=== PATIENT | female | born 1950 | race Caucasian/White ===

== ENCOUNTER 2020-09-10 18:54 | Emergency (ER) | payer MEDICARE, OTHER ==
[2020-09-10] MEDS ORDERED: PERCOCET TABLET 5/325MG PO ONE (19:26)
[2020-09-10] MEDS ORDERED: PERCOCET TABLET 5/325MG ONE (19:32)
--- NOTE | 2020-09-10 20:01 | ERPHSYRPT ---
- History of Present Illness Time Seen by Provider: 09/10/20 18:57 Source: patient, family Exam Limitations: no limitations Patient Subjective Stated Complaint: pt fell and landed on left arm. pt co pain to left arm, Triage Nursing Assessment: pt arrived per wc, alert, face mask in place, resp easy, skin wd/d/p, co left upper arm pain, has strong radial pulse, nail beds pink Physician History: 69-year-old female with history of diabetes mellitus, hypertension, coronary artery disease presented in the ER with chief complaint of left elbow and shoulder pain after she stumbled and fell on left elbow. Did not hit her head. No loss of consciousness. She is complaining of moderate to severe intensity sharp pain in the left elbow with movements and also pain in the left shoulder as well. She does have history of left shoulder humeral head fracture many years ago which was managed nonsurgically. Denies any numbness tingling or weakness in the hand/forearm. No injury anywhere else. Occurred: this afternoon Method of Injury: fell Quality: sharpness Severity of Pain-Max: moderate Severity of Pain-Current: moderate Extremities Pain Location: shoulder: left, elbow: left Modifying Factors: Improves With: immobilization. Worsens With: movement Associated Symptoms: none Allergies/Adverse Reactions: No Known Drug Allergies Allergy (Unverified 09/10/20 19:15) Home Medications: Amlodipine/Valsartan/Hcthiazid [Ghjte-Nhehh-Ijln 10-160-12.5MG] 1 ea DAILY 09/10/20 [History] Atorvastatin Calcium 1 ea DAILY 09/10/20 [History] Celecoxib 100 mg [celeBREX 100 MG] 1 ea DAILY 09/10/20 [History] Duloxetine HCl 1 ea DAILY 09/10/20 [History] Isosorbide Mononitrate 30 mg [Imdur 30 MG] 1 ea DAILY 09/10/20 [History] Metformin HCl Xr 500 mg [Glucophage XR 500 MG] 1 ea DAILY 09/10/20 [History] Metoprolol Succinate 100 mg [Toprol Xl 100 MG] 1 ea DAILY 09/10/20 [History] Semaglutide [Ozempic] 1 ea WEEKLY 09/10/20 [History] buPROPion HCL [Bupropion Xl] 1 ea DAILY 09/10/20 [History] Hx Tetanus, Diphtheria Vaccination/Date Given: No Hx Influenza Vaccination/Date Given: Yes Hx Pneumococcal Vaccination/Date Given: Yes Immunizations Up to Date: Yes Travel Risk - International Travel Have you traveled outside of the country in past 3 weeks: No - Coronavirus Screening Are you exhibiting any of the following symptoms?: No - Vaccine Status Have you recieved a Covid-19 vaccination: 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[employer] - Vaccination Dates Date of 2cond Vaccination (if applicable): may - Review of Systems Constitutional: No Symptoms Eyes: No Symptoms Ears, Nose, & Throat: No Symptoms Respiratory: No Symptoms Cardiac: No Symptoms Abdominal/Gastrointestinal: No Symptoms Genitourinary Symptoms: No Symptoms Musculoskeletal: Fall, Injury, Joint Pain Skin: No Symptoms Neurological: No Symptoms Psychological: No Symptoms Hematologic/Lymphatic: No Symptoms - Past Medical History Cardiac History: Hypertension, Other Endocrine Medical History: Diabetes Type II Other Medical History: R TKA - Past Surgical History Past Surgical History: Yes Gastrointestinal: Appendectomy Musculoskeletal: Orthopedic Surgery Other Surgical History: r knee replacement - Social History Smoking Status: Never smoker Exposure to second hand smoke: No Drug Use: none Patient Lives Alone: No - Female History Hx Last Menstrual Period: post Hx Now: No - Nursing Vital Signs Nursing Vital Signs: Initial Vital Signs Temperature 96.7 F 09/10/20 19:09 Pulse Rate 68 09/10/20 19:09 Respiratory Rate 18 09/10/20 19:09 Blood Pressure 162/71 09/10/20 19:09 O2 Sat by Pulse Oximetry 96 09/10/20 19:09 Pain Scale Pain Intensity 7 - Physical Exam General Appearance: no apparent distress, alert Eyes, Ears, Nose, Throat Exam: normal ENT inspection, pharynx normal Neck Exam: normal inspection, non-tender, supple, full range of motion Cardiovascular/Respiratory Exam: chest non-tender, normal breath sounds, regular rate/rhythm Abdominal Exam: non-tender, soft Back Exam: normal inspection, normal range of motion, No CVA tenderness Shoulder Exam: normal inspection, bone tenderness (Left shoulder), limited ROM (Left shoulder), pain Elbow/Forearm Exam: normal inspection, bone tenderness (Left elbow), limited ROM (Left arm), soft tissue tenderness Wrist Exam: normal inspection, non-tender, no evidence of injury, normal ROM Hand Exam: normal inspection, non-tender, no evidence of injury, normal ROM Neuro/Tendon Exam: normal sensation, normal motor functions Mental Status Exam: alert, oriented x 3, cooperative Skin Exam: normal color SpO2 Interpretation: normal SpO2: 96 O2 Delivery: Room Air Ordered Tests: Active Orders 24 hr Category Date Time Status ELBOW (MINIMUM 3 VIEWS) Stat Exams 09/10/20 20:28 Taken SHOULDER Stat Exams 09/10/20 20:28 Taken Medication Summary Discontinued Medications Generic Name Dose Route Start Last Admin Trade Name James PRN Reason Stop Dose Admin Oxycodone/Acetaminophen 1 tab 09/10/20 19:26 09/10/20 19:35 Percocet Tablet 5/325mg PO 09/10/20 19:27 1 tab STAT ONE Administration Oxycodone/Acetaminophen Confirm 09/10/20 19:32 Percocet Tablet 5/325mg Administered 09/10/20 19:33 Dose 1 tab .ROUTE .STK-MED ONE - Progress Progress: improved, pain not gone completely, re-examined Progress Note: 09/10/20 20:30 She is given oral pain medication for symptomatic relief, on reevaluation feeling better and able to move left upper extremity but still have some limitation especially in the shoulder area. X-rays elbow reviewed by me do not reveal any obvious fracture dislocation. There is a questionable fracture upper end of humerus/humeral head area. No dislocation. Official reports are pending. I would treat her as a fracture and give her symptomatic treatment for pain and immobilizer/sling and outpatient orthopedic follow-up. Discussed signs symptoms of worsening needing return to ER which patient/daughter seemed understanding. No injury anywhere else, do not think needs any other imaging, stable for discharge. Counseled pt/family regarding: diagnosis, need for follow-up, rad results - Departure Departure Disposition: Home Clinical Impression: Left humeral fracture Qualifiers: Encounter type: initial encounter Humerus Location: proximal Fracture type: closed Fracture morphology: other fracture Fracture alignment: nondisplaced Qualified Code(s): S42.295A - Other nondisplaced fracture of upper end of left humerus, initial encounter for closed fracture Fall Qualifiers: Encounter type: initial encounter Qualified Code(s): W19.XXXA - Unspecified fall, initial encounter Contusion of left elbow Qualifiers: Encounter type: initial encounter Qualified Code(s): S50.02XA - Contusion of left elbow, initial encounter Condition: Stable Critical Care Time: No Referrals: Francia GAY [Primary Care Provider] - (1-2 days for reevaluation) ORTHO - ANALISA SKELTON NP [NON-STAFF PHY W/O PRIVILEGES] - (Tomorrow for reevaluation) Instructions: Shoulder Fracture (DC), Preventing Falls in the Older Adult Additional Instructions: Take pain medications only as needed. Use cane/walker for ambulation to avoid another fall. Follow-up with Ortho clinic and primary care for reevaluation. Return to ER for intractable pain, numbness tingling weakness or pain anywhere else. Prescriptions: Hydrocodone/APAP 5/325 [Rudy 5/325 mg] 1 each PO Q8H PRN PRN #10 tablet MDD 4 PRN Reason: Pain
[2020-09-10] MEDS ORDERED: NORCO 5/325 MG PO ONE (20:35)
[2020-09-10] MEDS ORDERED: NORCO 5/325 MG ONE (20:37)
[2020-09-10 20:53] VITALS: BP 163/79; PULSE 67; O2SAT 94
--- NOTE | 2020-09-11 09:12 | XRAY ---
Indication: Pain following fall. Comparison: None 3 view left shoulder demonstrates mildly angulated subcapital/proximal humerus fracture. Elsewhere osteopenia, mild glenohumeral/AC degenerative arthropathy, and moderate multilevel degenerative spondylosis. No other bony, articular, or soft tissue abnormalities.
--- NOTE | 2020-09-11 09:15 | XRAY ---
Indication: Pain following fall. Comparison: None 3 view left elbow obtained. Lateral view limited due to suboptimal positioning. There is mild osteopenia and tiny spurring medial/lateral epicondyles and olecranon process. A few tiny soft tissue calcified granulomas. No other bony, articular, or soft tissue abnormalities.
== END 2020-09-10 20:54 | disposition home or self-care (01) ==
LOC: ED 18:54
DX: S42.295A Other nondisplaced fracture of upper end of left humerus, initial encounter for closed fracture (principal); S50.02XA Contusion of left elbow, initial encounter; W01.0XXA Fall on same level from slipping, tripping and stumbling without subsequent striking against object, initial encounter; E11.9 Type 2 diabetes mellitus without complications; I10 Essential (primary) hypertension; M25.522 Pain in left elbow; M25.512 Pain in left shoulder; Z79.899 Other long term (current) drug therapy
CPT/HCPCS: 73030; 73080; 99284; A9270-GY

== ENCOUNTER 2022-05-26 20:25 | Observation (INO) | payer MEDICARE, OTHER ==
[2022-05-26 22:13] LABS: Absolute Neutrophil Ct (ANC) 8.44 x10^3/uL (1.4-6.9); BASOPHIL % 0.4 % (0.0-0.4); Basophil (Absolute #) 0.04 x10^3/uL (0-0.4); Eosinophil % 1.5 % (0.00-5.0); Eosinophil (Absolute #) 0.16 x10^3/uL (0-0.5); Hematocrit 42.9 % (35-47); Hemoglobin 13.9 g/dL (12.0-16.0); IMMATURE GRAN # 0.03 x10^3u/L (0.00-0.03); IMMATURE GRAN % 0.3 % (0.00-0.4); Lymphocyte (Absolute #) 1.13 x10^3/uL (1.0-4.6); Lymphocytes % 10.9 % (24.0-44.0); Mean Cell Volume 86.3 fL (78-100); Mean Corpuscular Hgb Concent. 32.4 g/dL (32-36); Mean Platelet Volume 10.7 fL (7.5-11.0); Monocyte (Absolute #) 0.57 x10^3/uL (0.0-1.3); Monocytes % 5.5 % (0.0-12.0); Neutrophil % 81.4 % (36.0-66.0); Platelet Count 257 x10^3/uL (150-450); Red Blood Count 4.97 x10^6/uL (4.1-5.4); Red Cell Distribution Width 15.1 % (11.5-14.0); White Blood Count 10.4 x10^3/uL (4.0-10.5)
[2022-05-26 22:30] LABS: ALBUMIN 4.2 g/dL (3.5-5.0); ANION GAP 14.6 MEQ/L (5-15); BILIRUBIN,TOTAL 0.6 mg/dL (0.2-1.3); Calcium 9.7 mg/dL (8.4-10.2); Creatinine 1 1.03 mg/dL (0.52-1.04); EST GLOMERULAR FILTRATION RATE 55.8 ML/MIN; Potassium 4.2 mmol/L (3.5-5.1); Total Protein 7.7 g/dL (6.3-8.2)
[2022-05-27 00:15] LABS: INFLUENZA A NEGATIVE (NEGATIVE); INFLUENZA B NEGATIVE (NEGATIVE); RESPIRATORY SYNCTIAL VIRUS NEGATIVE (NEGATIVE); SARS-CoV-2 Xpert Express NEGATIVE (NEGATIVE)
--- NOTE | 2022-05-27 00:26 | ERPHSYRPT ---
- History of Present Illness Time Seen by Provider: 05/26/22 20:45 Source: patient Exam Limitations: no limitations Patient Subjective Stated Complaint: Pt reports "I fell and I think I passed out as I was falling. I hurt my shoulder. I didn't hit my head. I hope I am not in A-fib again." Triage Nursing Assessment: Pt alert and oriented x3. Arrived POV by spouse. Ambulated to ED cot without difficulty. Skin w/p/d. No apparent respiratory distress. No tenderness upon palpation/bruising/obvious disformities to right shoulder. Denies chest pain/sob/dizziness/lightheadedness. Physician History: Patient 71-year-old female presents to our ED via EMS for evaluation of syncope and fall. Patient was at home. Her left leg gave out. Patient believes she had a syncopal episode. Patient's helped her off the floor. Patient is on blood thinners. Patient has a history of A-fib. No chest pain or shortness of breath. No nausea vomiting or diaphoresis. Symptoms are mild to moderate in intensity. Patient complains of some right shoulder discomfort. No functional limitations. No swelling. Patient denies a history of syncope. She voices no other complaints or concerns at this time. Portions of this note were created with voice recognition technology. There may be grammatical, spelling, punctuation or sound alike errors Timing/Duration: today Severity: moderate Modifying Factors: Improves With: nothing Associated Symptoms: denies symptoms Allergies/Adverse Reactions: No Known Drug Allergies Allergy (Unverified 05/26/22 20:50) Home Medications: Amlodipine/Valsartan/Hcthiazid [Wihij-Sotrw-Bkdp 10-160-12.5MG] 1 ea DAILY 09/10/20 [History] Atorvastatin Calcium 1 ea DAILY 09/10/20 [History] Duloxetine HCl 1 ea DAILY 09/10/20 [History] Isosorbide Mononitrate 30 mg [Imdur 30 MG] 1 ea DAILY 09/10/20 [History] Metformin HCl Xr 500 mg [Glucophage XR 500 MG] 1 ea DAILY 09/10/20 [History] Metoprolol Succinate 100 mg [Toprol Xl 100 MG] 1 ea DAILY 09/10/20 [History] Semaglutide [Ozempic] 0.1 ml WEEKLY 09/10/20 [History] Apixaban [Eliquis] 5 mg PO BID 05/26/22 [History] Hx Tetanus, Diphtheria Vaccination/Date Given: No Hx Influenza Vaccination/Date Given: No Hx Pneumococcal Vaccination/Date Given: Yes Travel Risk - International Travel Have you traveled outside of the country in past 3 weeks: No - Coronavirus Screening Are you exhibiting any of the following symptoms?: No Close contact with a COVID-19 positive Pt in past 14-21 Days: No - Vaccine Status Have you recieved a Covid-19 vaccination: 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: [employer] - Vaccination Dates Date of 2cond Vaccination (if applicable): may - Review of Systems Constitutional: No Symptoms, No Fever, No Chills Eyes: No Symptoms Ears, Nose, & Throat: No Symptoms Respiratory: No Symptoms, No Cough, No Dyspnea Cardiac: No Symptoms, No Chest Pain, No Edema, No Syncope Abdominal/Gastrointestinal: No Symptoms, No Abdominal Pain, No Nausea, No Vomiting, No Diarrhea Genitourinary Symptoms: No Symptoms, No Dysuria Musculoskeletal: No Symptoms, No Back Pain, No Neck Pain Skin: No Symptoms, No Rash Neurological: No Symptoms, No Dizziness, No Focal Weakness, No Sensory Changes Psychological: No Symptoms Endocrine: No Symptoms Hematologic/Lymphatic: No Symptoms Immunological/Allergic: No Symptoms All Other Systems: Reviewed and Negative - Past Medical History Neurological History: No Pertinent History Cardiac History: High Cholesterol, Hypertension, Other Respiratory History: No Pertinent History Endocrine Medical History: Diabetes Type II, Liver Disease Musculoskeletal History: Arthritis, Fractures Other Medical History: Heart Murmur. Atrial fibrillation. L humeral fx - Past Surgical History Past Surgical History: Yes Gastrointestinal: Appendectomy Musculoskeletal: Orthopedic Surgery Other Surgical History: r knee replacement , two cardiac stents placed - Social History Smoking Status: Never smoker Exposure to second hand smoke: Yes Drug Use: none Patient Lives Alone: No - Nursing Vital Signs Nursing Vital Signs: Initial Vital Signs Temperature 97.6 F 05/26/22 20:38 Pulse Rate 117 H 05/26/22 20:38 Respiratory Rate 15 05/26/22 20:38 Blood Pressure 114/74 05/26/22 20:38 O2 Sat by Pulse Oximetry 95 05/26/22 20:38 Pain Scale Pain Intensity 6 - Physical Exam General Appearance: no apparent distress, alert Eye Exam: PERRL/EOMI, eyes nml inspection Ears, Nose, Throat Exam: normal ENT inspection, TMs normal, pharynx normal, moist mucous membranes Neck Exam: normal inspection, non-tender, supple, full range of motion Respiratory Exam: normal breath sounds, lungs clear, airway intact, No respiratory distress Cardiovascular Exam: regular rate/rhythm, normal heart sounds, normal peripheral pulses Gastrointestinal/Abdomen Exam: soft, normal bowel sounds, No tenderness, No mass Back Exam: normal inspection, normal range of motion, No CVA tenderness, No vertebral tenderness Extremity Exam: normal inspection, normal range of motion, pelvis stable Neurologic Exam: alert, oriented x 3, cooperative, normal mood/affect, nml cerebellar function, nml station & gait, sensation nml, No motor deficits Skin Exam: normal color, warm, dry, No rash Lymphatic Exam: No adenopathy SpO2 Interpretation: normal SpO2: 94 O2 Delivery: Room Air - Course Nursing assessment & vital signs reviewed: Yes EKG Interpreted by Me: RATE (115), A-fib, NORMAL AXIS, NORMAL INTERVALS - Radiology Exams Shoulder X-ray Interpretation: Interpreted by me (No fracture or dislocation. Osteopenia) - CT Exams Head CT Interpretation: Tele-radiologist Report (Diffuse atrophy and chronic remote ischemic changes without evidence of superimposed acute infarct or acute intracranial injury) Ordered Tests: Active Orders 24 hr Category Date Time Status Sql Server Developer STAT Care 05/26/22 21:49 Active EKG-ER Only STAT Care 05/26/22 21:48 Active IV Insertion STAT Care 05/26/22 21:48 Active HEAD WITHOUT CONTRAST [CT] Stat Exams 05/26/22 23:51 Taken SHOULDER Stat Exams 05/26/22 21:11 Taken CBC W DIFF Stat Lab 05/26/22 22:05 Completed CMP Stat Lab 05/26/22 22:05 Completed TROPONIN Q4H Lab 05/26/22 22:05 Completed TROPONIN Q4H Lab 05/27/22 02:00 Ordered TROPONIN Q4H Lab 05/27/22 06:00 Ordered UA W/RFX UR CULTURE Stat Lab 05/26/22 21:49 Ordered Transfer Order Routine Transfer 05/26/22 Ordered Lab/Rad Data: Laboratory Result Diagrams 05/26/22 22:05 05/26/22 22:05 Laboratory Results 05/26/22 05/26/22 05/26/22 Range/Units 23:15 22:05 22:05 WBC (4.0-10.5) x10^3/uL RBC (4.1-5.4) x10^6/uL Hgb (12.0-16.0) g/dL Hct (35-47) % MCV (78-100) fL MCH (26-32) pg MCHC (32-36) g/dL RDW (11.5-14.0) % Plt Count (150-450) x10^3/uL MPV (7.5-11.0) fL Gran % (36.0-66.0) % Immature Gran % (Auto) (0.00-0.4) % Nucleat RBC Rel Count (0.00-0.1) % Eos # (Auto) (0-0.5) x10^3/uL Immature Gran # (Auto) (0.00-0.03) x10^3u/L Absolute Lymphs (auto) (1.0-4.6) x10^3/uL Absolute Monos (auto) (0.0-1.3) x10^3/uL Absolute Nucleated RBC (0.00-0.01) x10^3u/L Lymphocytes % (24.0-44.0) % Monocytes % (0.0-12.0) % Eosinophils % (0.00-5.0) % Basophils % (0.0-0.4) % Absolute Granulocytes (1.4-6.9) x10^3/uL Basophils # (0-0.4) x10^3/uL Sodium 139 (137-145) mmol/L Potassium 4.2 (3.5-5.1) mmol/L Chloride 96 L (98-107) mmol/L Carbon Dioxide 32 H (22-30) mmol/L Anion Gap 14.6 (5-15) MEQ/L BUN 25 H (7-17) mg/dL Creatinine 1.03 (0.52-1.04) mg/dL Estimated GFR 55.8 ML/MIN Glucose 123 H (74-106) mg/dL Calcium 9.7 (8.4-10.2) mg/dL Total Bilirubin 0.60 (0.2-1.3) mg/dL AST 27 (14-36) U/L ALT 23 (0-35) U/L Alkaline Phosphatase 89 (38-126) U/L Troponin I < 0.012 (0.000-0.034) ng/mL Serum Total Protein 7.7 (6.3-8.2) g/dL Albumin 4.2 (3.5-5.0) g/dL Influenza Type A Ag NEGATIVE (NEGATIVE) Influenza Type B Ag NEGATIVE (NEGATIVE) RSV (PCR) NEGATIVE (NEGATIVE) SARS-CoV-2 (PCR) NEGATIVE (NEGATIVE) 05/26/22 Range/Units 22:05 WBC 10.4 (4.0-10.5) x10^3/uL RBC 4.97 (4.1-5.4) x10^6/uL Hgb 13.9 (12.0-16.0) g/dL Hct 42.9 (35-47) % MCV 86.3 (78-100) fL MCH 28.0 (26-32) pg MCHC 32.4 (32-36) g/dL RDW 15.1 H (11.5-14.0) % Plt Count 257 (150-450) x10^3/uL MPV 10.7 (7.5-11.0) fL Gran % 81.4 H (36.0-66.0) % Immature Gran % (Auto) 0.3 (0.00-0.4) % Nucleat RBC Rel Count 0.0 (0.00-0.1) % Eos # (Auto) 0.16 (0-0.5) x10^3/uL Immature Gran # (Auto) 0.03 (0.00-0.03) x10^3u/L Absolute Lymphs (auto) 1.13 (1.0-4.6) x10^3/uL Absolute Monos (auto) 0.57 (0.0-1.3) x10^3/uL Absolute Nucleated RBC 0.00 (0.00-0.01) x10^3u/L Lymphocytes % 10.9 L (24.0-44.0) % Monocytes % 5.5 (0.0-12.0) % Eosinophils % 1.5 (0.00-5.0) % Basophils % 0.4 (0.0-0.4) % Absolute Granulocytes 8.44 H (1.4-6.9) x10^3/uL Basophils # 0.04 (0-0.4) x10^3/uL Sodium (137-145) mmol/L Potassium (3.5-5.1) mmol/L Chloride (98-107) mmol/L Carbon Dioxide (22-30) mmol/L Anion Gap (5-15) MEQ/L BUN (7-17) mg/dL Creatinine (0.52-1.04) mg/dL Estimated GFR ML/MIN Glucose (74-106) mg/dL Calcium (8.4-10.2) mg/dL Total Bilirubin (0.2-1.3) mg/dL AST (14-36) U/L ALT (0-35) U/L Alkaline Phosphatase (38-126) U/L Troponin I (0.000-0.034) ng/mL Serum Total Protein (6.3-8.2) g/dL Albumin (3.5-5.0) g/dL Influenza Type A Ag (NEGATIVE) Influenza Type B Ag (NEGATIVE) RSV (PCR) (NEGATIVE) SARS-CoV-2 (PCR) (NEGATIVE) - Progress Progress: improved Progress Note: 71-year-old female with a history of A-fib. Patient presents to our ED for evaluation of syncope. Complexity of problems addressed is moderate. Complexity of data reviewed and analyzed is moderate. Risk of complication and or risk morbidity/mortality due to patient management is low. Patient will be admitted for syncopal work-up. Patient agrees to admission [facility] for further evaluation and treatment. 05/27/22 00:28 Discussed with : Other (Case discussed with hospitalist who accepts admission to observation) Counseled pt/family regarding: lab results, diagnosis, rad results - Departure Departure Disposition: Observation Clinical Impression: Atrial fibrillation, Syncope and collapse Condition: Stable Critical Care Time: No Referrals: Francia GYA [Primary Care Provider] - Follow up/PCP as directed
[2022-05-27] MEDS ORDERED: MILK OF MAGNESIA 30 ML PO PRN (03:23)
[2022-05-27] MEDS ORDERED: Zofran 4 MG/2 ML VIAL IV PRN (03:23)
[2022-05-27] MEDS ORDERED: TYLENOL 325 MG PO PRN (03:23)
[2022-05-27] MEDS ORDERED: Senokot-S Tablet PO PRN (03:23)
[2022-05-27] MEDS ORDERED: MAALOX ES 30 ML UNIT DOSE PO PRN (03:23)
--- NOTE | 2022-05-27 04:59 | PCM.HP ---
History of Present Illness - Chief Complaint Chief Complaint: syncope Date: 05/27/22 History of Present Illness: Ms. Chow is a 71 roz-old female with HTN, HLD, DM2, history of "leaky valve," and Afib on eliquis who presents with syncope. She states that she was casually walking across her living room, felt weak and a little light headed, felt her knees buckle, and then the next she knew she was on the ground. She does not remember if she lost consciousness, but if she did, she thinks it was for a second. There wer no associated auras or symptoms associated with this event. She had a syncopal event once two years ago associated with a fall, but that time she noted tripping on something and falling. Upon arrival to [place], her laboratory data and imaging were unremarkable, and on my examination, she currently denies any fevers, chills, nausea, vomiting, diarrhea, syncope, presyncope, visual changes, orthopnea, PND, odynophagia, dysphagia, chest pain, shortness of breath, belly pain, dysuria, hematuria, melena, hematochezia, or neurological changes. All other systems were reviewed and were negative. Medications & Allergies Home Medications: Home Medication List Atorvastatin Calcium 40 mg PO DAILY 09/10/20 [History Confirmed 05/27/22] Duloxetine HCl 60 mg PO BID 09/10/20 [History Confirmed 05/27/22] Isosorbide Mononitrate 30 mg [Imdur 30 MG] 30 mg PO DAILY 09/10/20 [History Confirmed 05/27/22] Metformin HCl Xr 500 mg [Glucophage XR 500 MG] 500 mg PO DAILY 09/10/20 [History Confirmed 05/27/22] Metoprolol Succinate 100 mg [Toprol Xl 100 MG] 100 mg PO DAILY 09/10/20 [History Confirmed 05/27/22] Semaglutide [Ozempic] 0.1 ml IM WEEKLY 09/10/20 [History Confirmed 05/27/22] Apixaban [Eliquis] 5 mg PO BID 05/26/22 [History Confirmed 05/27/22] Non-Formulary Drug [Non-Formulary Item] 1 tab PO DAILY 05/27/22 [History Confirmed 05/27/22] Allergies/Adverse Reactions: Allergies Allergy/AdvReac Type Severity Reaction Status Date / Time No Known Drug Allergies Allergy Unverified 05/26/22 20:50 - Past Medical History Neurological History: No Pertinent History Cardiac History: High Cholesterol, Hypertension, Other Respiratory History: No Pertinent History Endocrine Medical History: Diabetes Type II, Liver Disease Musculoskelatal History: Arthritis, Fractures Comment: Heart Murmur. Atrial fibrillation. L humeral fx - Female History Are you now?: No - Past Surgical History Past Surgical History: Yes GI Surgical History: Appendectomy Musculskeletal Surgical Hx: Orthopedic Surgery Other Surgical History: r knee replacement , two cardiac stents placed - Social History Smoking Status: Never smoker Exposure to second hand smoke: Yes Alcohol: None Drug Use: none - Physical Exam Vital Signs: Vital Signs - 24 hr Temp Pulse Resp BP Pulse Ox 05/27/22 03:00 97.4 F 96 H 24 148/82 95 05/27/22 02:00 86 15 125/90 96 05/27/22 00:30 94 L 05/27/22 00:06 116 H 16 121/87 94 L 05/26/22 23:21 107 H 16 95 05/26/22 22:05 94 H 16 133/59 97 05/26/22 20:38 97.6 F 117 H 15 114/74 95 Results - Labs Lab/Micro Results: Lab Results-Last 24 Hours 05/26/22 05/26/22 05/26/22 Range/Units 22:05 22:05 22:05 WBC 10.4 (4.0-10.5) x10^3/uL RBC 4.97 (4.1-5.4) x10^6/uL Hgb 13.9 (12.0-16.0) g/dL Hct 42.9 (35-47) % MCV 86.3 (78-100) fL MCH 28.0 (26-32) pg MCHC 32.4 (32-36) g/dL RDW 15.1 H (11.5-14.0) % Plt Count 257 (150-450) x10^3/uL MPV 10.7 (7.5-11.0) fL Gran % 81.4 H (36.0-66.0) % Immature Gran % (Auto) 0.3 (0.00-0.4) % Nucleat RBC Rel Count 0.0 (0.00-0.1) % Eos # (Auto) 0.16 (0-0.5) x10^3/uL Immature Gran # (Auto) 0.03 (0.00-0.03) x10^3u/L Absolute Lymphs (auto) 1.13 (1.0-4.6) x10^3/uL Absolute Monos (auto) 0.57 (0.0-1.3) x10^3/uL Absolute Nucleated RBC 0.00 (0.00-0.01) x10^3u/L Lymphocytes % 10.9 L (24.0-44.0) % Monocytes % 5.5 (0.0-12.0) % Eosinophils % 1.5 (0.00-5.0) % Basophils % 0.4 (0.0-0.4) % Absolute Granulocytes 8.44 H (1.4-6.9) x10^3/uL Basophils # 0.04 (0-0.4) x10^3/uL Sodium 139 (137-145) mmol/L Potassium 4.2 (3.5-5.1) mmol/L Chloride 96 L (98-107) mmol/L Carbon Dioxide 32 H (22-30) mmol/L Anion Gap 14.6 (5-15) MEQ/L BUN 25 H (7-17) mg/dL Creatinine 1.03 (0.52-1.04) mg/dL Estimated GFR 55.8 ML/MIN Glucose 123 H (74-106) mg/dL Calcium 9.7 (8.4-10.2) mg/dL Total Bilirubin 0.60 (0.2-1.3) mg/dL AST 27 (14-36) U/L ALT 23 (0-35) U/L Alkaline Phosphatase 89 (38-126) U/L Troponin I < 0.012 (0.000-0.034) ng/mL Serum Total Protein 7.7 (6.3-8.2) g/dL Albumin 4.2 (3.5-5.0) g/dL Influenza Type A Ag (NEGATIVE) Influenza Type B Ag (NEGATIVE) RSV (PCR) (NEGATIVE) SARS-CoV-2 (PCR) (NEGATIVE) 05/26/22 05/27/22 Range/Units 23:15 02:20 WBC (4.0-10.5) x10^3/uL RBC (4.1-5.4) x10^6/uL Hgb (12.0-16.0) g/dL Hct (35-47) % MCV (78-100) fL MCH (26-32) pg MCHC (32-36) g/dL RDW (11.5-14.0) % Plt Count (150-450) x10^3/uL MPV (7.5-11.0) fL Gran % (36.0-66.0) % Immature Gran % (Auto) (0.00-0.4) % Nucleat RBC Rel Count (0.00-0.1) % Eos # (Auto) (0-0.5) x10^3/uL Immature Gran # (Auto) (0.00-0.03) x10^3u/L Absolute Lymphs (auto) (1.0-4.6) x10^3/uL Absolute Monos (auto) (0.0-1.3) x10^3/uL Absolute Nucleated RBC (0.00-0.01) x10^3u/L Lymphocytes % (24.0-44.0) % Monocytes % (0.0-12.0) % Eosinophils % (0.00-5.0) % Basophils % (0.0-0.4) % Absolute Granulocytes (1.4-6.9) x10^3/uL Basophils # (0-0.4) x10^3/uL Sodium (137-145) mmol/L Potassium (3.5-5.1) mmol/L Chloride (98-107) mmol/L Carbon Dioxide (22-30) mmol/L Anion Gap (5-15) MEQ/L BUN (7-17) mg/dL Creatinine (0.52-1.04) mg/dL Estimated GFR ML/MIN Glucose (74-106) mg/dL Calcium (8.4-10.2) mg/dL Total Bilirubin (0.2-1.3) mg/dL AST (14-36) U/L ALT (0-35) U/L Alkaline Phosphatase (38-126) U/L Troponin I < 0.012 (0.000-0.034) ng/mL Serum Total Protein (6.3-8.2) g/dL Albumin (3.5-5.0) g/dL Influenza Type A Ag NEGATIVE (NEGATIVE) Influenza Type B Ag NEGATIVE (NEGATIVE) RSV (PCR) NEGATIVE (NEGATIVE) SARS-CoV-2 (PCR) NEGATIVE (NEGATIVE) - Radiology Impressions Radiology Exams & Impressions: Radiology Procedures Category Date Time Status HEAD WITHOUT CONTRAST [CT] Stat Exams 05/26/22 23:51 Taken SHOULDER Stat Exams 05/26/22 21:11 Taken - Other Procedures and Tests Respiratory Therapy 05/27/22 05:00 EKG ROUTINE 05/28/22 05:00 EKG ROUTINE 05/29/22 05:00 EKG ROUTINE Telemedicine Encounter - Telemedicine Encounter Telemedicine Encounter: The entirety of this encounter was performed via Telemedicine"
[2022-05-27 05:53] LABS: Risk Ratio 3.7
--- NOTE | 2022-05-27 08:50 | XRAY ---
Indication: Status post fall with loss of consciousness. Dizziness. Blood thinner therapy. Multiple contiguous axial images obtained through the head without contrast. Comparison: None Age-appropriate global atrophy and moderate periventricular degenerative micro-ischemia bilaterally. No acute intracranial hemorrhage, abnormal extra-axial fluid collection, or mass effect. Fourth ventricle is midline without hydrocephalus. Bony calvarium intact. Visualized paranasal sinuses and mastoid air cells are clear. Impression: Nonacute senile brain. Comment: Preliminary interpretation made by [facility]. No critical discrepancy.
--- NOTE | 2022-05-27 08:50 | XRAY ---
Indication: Pain following fall. Comparison: None 3 view right shoulder demonstrates osteopenia, moderate glenohumeral/acromioclavicular degenerative changes, and moderate degenerative changes throughout visualized spine. No other bony, articular, or soft tissue abnormalities.
[2022-05-27] MEDS ORDERED: MEDICATION INTERVENTION MC SCH ×2 (09:15)
[2022-05-27] MEDS ORDERED: NON-FORMULARY ITEM (Semaglutide [Ozempic] 0.25 MG/0.2 ML Pen.Injctr) IM SCH (09:15)
[2022-05-27] MEDS ORDERED: Glucophage XR 500 MG PO SCH (09:30)
[2022-05-27] MEDS ORDERED: NON-FORMULARY ITEM (Non-Formulary Drug [Non-Formulary Item] 1 EACH Each) PO SCH (10:00)
[2022-05-27] MEDS ORDERED: NON-FORMULARY ITEM (Duloxetine Hcl [Duloxetine Hcl] 60 MG Capsule.Dr) PO SCH (10:00)
[2022-05-27] MEDS ORDERED: ZOCOR 20MG PO SCH (10:00)
[2022-05-27] MEDS ORDERED: Toprol Xl 100 MG PO SCH (10:00)
[2022-05-27] MEDS ORDERED: NON-FORMULARY ITEM (Apixaban [Eliquis] 5 MG Tablet) PO SCH (10:00)
[2022-05-27] MEDS ORDERED: Imdur 30 MG PO SCH (10:00)
[2022-05-27] MEDS ORDERED: ELIQUIS 2.5 MG TABLET PO SCH (10:00)
[2022-05-27] MEDS ORDERED: LIPITOR 40MG PO SCH (10:00)
[2022-05-27] MEDS ORDERED: Cymbalta 30 MG Capsule PO SCH (10:00)
[2022-05-27 10:10] LABS: Appearance Clear (Clear); Bacteria None Seen /HPF (None Seen); Bilirubin Negative (Negative); Blood Negative (Negative); Epithelial Cells None Seen /HPF (None Seen); Glucose, Urine Negative (Negative); Hyaline Casts NONE SEEN /LPF (0-2); Ketones Negative (Negative); Leukocyte Esterase Moderate (Negative); Nitrite Negative (Negative); Protein,Urine Dip Negative (Negative); RBC 0-2 /HPF (0-5); WBC 51-100 /HPF (0-5)
[2022-05-27 10:16] LABS: ADD URINE CULTURE? YES (NO)
[2022-05-27 12:04] VITALS: BP 165/77; PULSE 100; O2SAT 94
--- NOTE | 2022-06-02 13:02 | ECHO ---
DATE: 05/27/2022 INDICATION: Atrial fibrillation, hypertension, syncopal episode. A transthoracic echocardiograph examination with color Doppler was done. IMPRESSION: 1. NO DEFINITE REGIONAL WALL MOTION ABNORMALITY WITH ESTIMATED GLOBAL LEFT VENTRICULAR EJECTION FRACTION OF AROUND 55-60%. 2. MILD MITRAL REGURGITATION. 3. MILD TRICUSPID REGURGITATION. 4. RIGHT VENTRICULAR SYSTOLIC PRESSURE OF 39 MM HG. 5. LEFT VENTRICULAR HYPERTROPHY. The left ventricle was partially visualized, but demonstrated adequate motion of all the segments with estimated global left ventricular ejection fraction between 55-60%. There is concentric left ventricular hypertrophy. There is no significant gradient across the left ventricular outflow tract. The mitral valve was seen and this appears to be thickened. There is mild mitral regurgitation. The left atrium is mildly enlarged. The aortic valve is sclerotic, but opens adequately. There is no significant gradient across the aortic valve. Right sided chambers are normal. There is mild tricuspid regurgitation with right ventricular systolic pressure of 39 mm Hg.
== END 2022-05-27 13:35 | disposition home health service (06) ==
LOC: ED 20:25 → MED SURG 05-27 02:00
PROVIDERS: ADMIT Internal Medicine Critical Care Medicine; ATTEND Family Medicine
DX: R55 Syncope and collapse (principal); I48.91 Unspecified atrial fibrillation; I10 Essential (primary) hypertension; E78.5 Hyperlipidemia, unspecified; E11.9 Type 2 diabetes mellitus without complications; W19.XXXA Unspecified fall, initial encounter; Z79.01 Long term (current) use of anticoagulants; Z79.899 Other long term (current) drug therapy; Z20.828 Contact with and (suspected) exposure to other viral communicable diseases
CPT/HCPCS: 0241U; 36000; 36415; 70450; 73030; 80053; 80061; 81001; 82947; 83721; 84484; 85025; 87086; 93005; 93041; 93268; 93306; 99283; G0378; A9270-GY

== ENCOUNTER 2023-04-14 08:08 | Emergency (ER) | payer MEDICARE, OTHER ==
--- NOTE | 2023-04-14 08:12 | ERPHSYRPT ---
- History of Present Illness Time Seen by Provider: 04/14/23 08:12 Source: patient, EMS, old records Exam Limitations: no limitations Physician History: This is an overweight 72-year-old white female patient who now lives at home and was, per her report, sleeping in her recliner when she suddenly slid out and hit her head and right shoulder. Patient complains of headache, neck pain, right shoulder pain as well. Patient was relatively recently in the [facility] for rehab following bilateral hip replacements. Patient and family are concerned about her hips as well. Patient has a history of atrial fibrillation and is on Eliquis. She has history of hypertension, hyperlipidemia and diabetes as well as arthritis. Patient was brought into the emergency department by the paramedics. Occurred: just prior to arrival Injuries/Pain Location: head, neck, upper extremity (Right shoulder), lower extremity (Lateral hips) Loss of Consciousness: no loss of consciousness Quality: aching Severity of Pain-Max: moderate Severity of Pain-Current: moderate Modifying Factors: Improves With: movement Associated Symptoms (Fall): extremity injury (Right shoulder and bilateral hips), headache, neck pain (Mild), No chest pain, No shortness of breath, No vomiting Allergies/Adverse Reactions: No Known Drug Allergies Allergy (Verified 04/14/23 08:30) Home Medications: Atorvastatin Calcium 40 mg PO DAILY 09/10/20 [History] Duloxetine HCl 60 mg PO BID 09/10/20 [History] Isosorbide Mononitrate 30 mg [Imdur 30 MG] 30 mg PO DAILY 09/10/20 [History] Metformin HCl Xr 500 mg [Glucophage XR 500 MG] 500 mg PO DAILY 09/10/20 [History] Metoprolol Succinate 100 mg [Toprol Xl 100 MG] 100 mg PO DAILY 09/10/20 [History] Semaglutide [Ozempic] 0.1 ml IM WEEKLY 09/10/20 [History] Apixaban [Eliquis] 5 mg PO BID 05/26/22 [History] Non-Formulary Drug [Non-Formulary Item] 1 tab PO DAILY 05/27/22 [History] Hx Tetanus, Diphtheria Vaccination/Date Given: No Hx Influenza Vaccination/Date Given: No Hx Pneumococcal Vaccination/Date Given: Yes Travel Risk - International Travel Have you traveled outside of the country in past 3 weeks: No - Coronavirus Screening Are you exhibiting any of the following symptoms?: No Close contact with a COVID-19 positive Pt in past 14-21 Days: No - Vaccine Status Have you recieved a Covid-19 vaccination: Yes Chlorinator: Pfizer - Vaccination Dates Date of 2cond Vaccination (if applicable): unsure - Review of Systems Constitutional: No Symptoms Eyes: No Symptoms Ears, Nose, & Throat: No Symptoms Respiratory: No Symptoms Cardiac: No Symptoms Abdominal/Gastrointestinal: No Symptoms Genitourinary Symptoms: No Symptoms Musculoskeletal: Fall, Injury (Right shoulder and bilateral hips) Skin: No Symptoms Neurological: Headache (Mild forehead) Psychological: No Symptoms Endocrine: No Symptoms Hematologic/Lymphatic: No Symptoms Immunological/Allergic: No Symptoms All Other Systems: Reviewed and Negative - Past Medical History Neurological History: No Pertinent History Cardiac History: High Cholesterol, Hypertension, Other Respiratory History: No Pertinent History Endocrine Medical History: Diabetes Type II, Liver Disease Musculoskeletal History: Arthritis, Fractures Other Medical History: Heart Murmur. Atrial fibrillation. L humeral fx - Past Surgical History Past Surgical History: Yes Gastrointestinal: Appendectomy Musculoskeletal: Orthopedic Surgery Other Surgical History: r knee replacement , two cardiac stents placed - Social History Smoking Status: Never smoker Exposure to second hand smoke: Yes Drug Use: none Patient Lives Alone: No - Nursing Vital Signs Nursing Vital Signs: Initial Vital Signs Temperature 97.0 F 04/14/23 08:20 Pulse Rate 64 04/14/23 08:20 Respiratory Rate 18 04/14/23 08:20 Blood Pressure 222/107 04/14/23 08:20 O2 Sat by Pulse Oximetry 95 04/14/23 08:20 Pain Scale Pain Intensity 5 - [place] Coma Score Best Eye Response ([place]): (4) open spontaneously Best Verbal Response ([place]): (5) oriented Best Motor Response ([place]): (6) obeys commands [place] Total: 15 - Physical Exam General Appearance: no apparent distress, alert, anxiety, obese Head Injury: contusions (Right of midline forehead), ecchymosis (Right of midline forehead) Eye Exam: PERRL/EOMI, eyes nml inspection ENT Exam: airway nml, nml ext.inspection, No evidence of ENT injury Neck Exam: supple, trachea midline, full range of motion, normal alignment, normal inspection Respiratory/Chest Exam: normal breath sounds, No chest tenderness, No respiratory distress, No ecchymosis, No crepitus Cardiovascular Exam: normal heart sounds, regular rate/rhythm Gastrointestinal Exam: soft, normal bowel sounds, No tenderness Rectal Exam: not done Back Exam: normal inspection, normal range of motion, No CVA tenderness, No vertebral tenderness Extremity Exam: normal inspection, normal range of motion, hip tenderness (Bilateralmild) Neurologic Exam: alert, oriented x 3, cooperative, cook helper juice II-XII nml as tested, normal mood/affect Skin Exam: warm, dry, ecchymosis (Mild localized right forehead) SpO2 Interpretation: normal O2 Delivery: Room Air - Course Nursing assessment & vital signs reviewed: Yes Ordered Tests: Active Orders 24 hr Category Date Time Status CERVICAL SPINE WO CONTRAST [CT] Stat Exams 04/14/23 08:28 Completed HEAD WITHOUT CONTRAST [CT] Stat Exams 04/14/23 08:28 Completed HIPS VEENA(2V) INCL PEL IF DONE Stat Exams 04/14/23 08:29 Completed HUMERUS Stat Exams 04/14/23 08:29 Completed SHOULDER Stat Exams 04/14/23 08:29 Completed Medication Summary Discontinued Medications Generic Name Dose Route Start Last Admin Trade Name Freq PRN Reason Stop Dose Admin Hydrocodone Bitart/Acetaminophen 1 tab 04/14/23 10:17 Hydrocodone/Apap 5/325 1 Tab Tablet PO 04/14/23 10:18 STAT ONE Metoprolol Tartrate 5 mg 04/14/23 10:17 Metoprolol Tartrate 5 Mg/5 Ml Vial IV 04/14/23 10:18 STAT ONE - Progress Progress: unchanged, pain not gone completely, re-examined Progress Note: 04/14/23 08:35 This patient's medical issue is 1 of low to moderate complexity. The level of complexity in the workup performed is based on review of the patient's past medical history, review of the patient's medication list, review of the patient's drug allergy list, history present illness and physical findings on examination. The workup in this patient includes CT scan of the head and cervical spine without contrast, x-ray of the patient's right shoulder and right humerus as well as bilateral hips and pelvis. 04/14/23 10:22 All of the radiographic studies were interpreted by the radiologist and I reviewed the impressions: Cervical spine CT without contrast is negative for acute fractures or subluxation. There are chronic findings present. There is subcentimeter right thyroid nodule/cyst. This was discussed with the patient and her daughter CT scan of the head without contrast shows bilateral frontal scalp hematomas. There is a nonacute senile brain. There is new pansinusitis. These were discussed with the patient's daughter. X-ray of the right shoulder shows degenerative changes without fracture or dislocation. X-ray of the right humerus shows no acute fracture or dislocation. X-ray of the pelvis and bilateral hip shows no acute fracture or dislocation. The left hip arthroscopy with intact prosthesis is present. Counseled pt/family regarding: diagnosis, need for follow-up, rad results Medical Desision Making - Independent Historian Additional History obtained from: Family, Laboratory Apparatus Glass Grinder/EMT - Diagnostic Testing Diagnostic test were ordered, analyzed, and reviewed by me: Yes Radiological Interpretation: Reviewed by me, Teleradiologist Report - Risk of complications Low Risk: Low risk of morbidity from additional dx testing or treatment - Departure Departure Disposition: Home Clinical Impression: Fall with no significant injury, Pansinusitis, Right thyroid nodule, Hypertension Condition: Stable Critical Care Time: No Referrals: ANDREA COONEY OF [LOCATION] - Follow up/PCP as directed Additional Instructions: Take your medications as prescribed, including your morning medicines when you arrive back to your home. Call your primary care provider today, 04/14/2023, to make arrangements for follow-up for further evaluation of blood pressure issues and right thyroid nodule. Prescriptions: Amoxicillin 500 mg Cap [Amoxil 500 mg] 500 mg PO TID #30 cap
[2023-04-14 08:22] VITALS: TEMP 97
--- NOTE | 2023-04-14 09:29 | XRAY ---
Indication: Fall with injury. Multiple contiguous axial images obtained through the head without contrast. Comparison: December 19, 2022 Again age-appropriate global atrophy and moderate periventricular degenerative micro-ischemia bilaterally. No acute intracranial hemorrhage, abnormal extra-axial fluid collection, or mass effect. Fourth ventricle is midline without hydrocephalus. New small right and tiny left frontal scalp hematomas. Bony calvarium intact. New near complete opacification both maxillary and both ethmoid sinuses. Mastoid air cells are clear. Impression: Bifrontal scalp hematomas. Continued nonacute senile brain. New pansinusitis.
--- NOTE | 2023-04-14 09:33 | XRAY ---
Indication: Fall with injury. Multiple contiguous axial images obtained through the cervical spine. Sagittal and coronal reformatted images obtained. Comparison: None Osseous structures demineralized. Incidental C2-C3 congenital fusion. Axial images negative for acute fracture, suspicious bony lesions, or spinal canal stenosis. Mild/moderate multilevel degenerative endplate spurring greatest at C5-C6. Also moderate multilevel bilateral degenerative facet hypertrophy and mild atlantoaxial degenerative changes. Sagittal and coronal reformatted images demonstrates mild levoscoliosis and C5-T1 disc space narrowing. No acute compression fracture, subluxation, or jumped facet. Normal appearing craniocervical junction. Visualized noncontrasted soft tissues demonstrates moderate bilateral carotid calcifications and 7 mm right thyroid hypodense nodule/cyst. Impression: 1. Negative acute fracture/subluxation. 2. Chronic findings including osteopenia, multilevel degenerative changes, levoscoliosis, bilateral carotid calcifications, and subcentimeter right thyroid hypodense nodule/cyst.
--- NOTE | 2023-04-14 09:35 | XRAY ---
Indication: Fall injury. Comparison: None 3 view right shoulder demonstrates osteopenia, mild acromioclavicular degenerative changes, moderate glenohumeral degenerative changes with lateral humeral head heterotopic ossifications, and mild/moderate degenerative changes visualized spine. No other bony, articular, or soft tissue abnormalities.
--- NOTE | 2023-04-14 09:35 | XRAY ---
Indication: Fall injury. Comparison: None 2 view right humerus demonstrates osteopenia and moderate right shoulder degenerative changes. No other bony, articular, or soft tissue abnormalities.
--- NOTE | 2023-04-14 09:37 | XRAY ---
Indication: Fall injury. Comparison: None AP pelvis and 2 view left/right hip demonstrates osteopenia, left hip arthroplasty with intact bipolar prosthesis, mild bilateral greater trochanter spurring, moderate multilevel lumbar degenerative spondylosis, and mild scattered vascular calcifications. No other bony, articular, or soft tissue abnormalities.
[2023-04-14] MEDS ORDERED: LOPRESSOR INJECTION IV ONE (10:20)
[2023-04-14] MEDS: NORCO 5/325 MG PO ONE (10:24)
[2023-04-14] MEDS: LOPRESSOR INJECTION IV ONE (10:26)
[2023-04-14] MEDS ORDERED: TYLENOL 325 MG ONE (10:28)
[2023-04-14] MEDS: TYLENOL 325 MG PO ONE (10:30)
[2023-04-14 11:05] VITALS: BP 194/81; PULSE 61; RESP 20; O2SAT 99
== END 2023-04-14 11:00 | disposition home or self-care (01) ==
LOC: ED 08:08
DX: Z04.3 Encounter for examination and observation following other accident (principal); J32.4 Chronic pansinusitis; E04.1 Nontoxic single thyroid nodule; I10 Essential (primary) hypertension; R51.9 Headache, unspecified; M54.2 Cervicalgia; M25.511 Pain in right shoulder; E78.5 Hyperlipidemia, unspecified; E11.9 Type 2 diabetes mellitus without complications; Z79.01 Long term (current) use of anticoagulants; Z79.84 Long term (current) use of oral hypoglycemic drugs; Z79.85 Long-term (current) use of injectable non-insulin antidiabetic drugs; Z79.899 Other long term (current) drug therapy
CPT/HCPCS: 70450; 72125; 73030; 73060; 73521; 96374; 99284; A9270-GY